=== PATIENT | female | born 1950 | race Caucasian/White ===

== ENCOUNTER 2017-09-09 19:19 | Emergency (ER) | payer OTHER ==
[~2017-09-09] VITALS: Ht 165.1 cm; Wt 90.9 kg
[2017-09-09] MEDS ORDERED: LIDODERM 5% P1 PATCH TD (22:51)
[2017-09-09 22:58] VITALS: BP 126/59
== END 2017-09-09 22:59 | disposition home or self-care (01) ==
LOC: EME 19:19
DX: M79.604 Pain in right leg (principal); M71.21 Synovial cyst of popliteal space [Baker], right knee; Z86.718 Personal history of other venous thrombosis and embolism; Z91.040 Latex allergy status; Z88.0 Allergy status to penicillin; Z88.5 Allergy status to narcotic agent
CPT/HCPCS: 93971; 99281; 99284; J3010